=== PATIENT | male | born 1985 | race Caucasian/White ===

== ENCOUNTER 2017-06-23 17:02 | Emergency (ER) | payer MEDICARE, MEDICAID ==
[~2017-06-23] VITALS: Ht 198.1 cm; Wt 110.0 kg
[2017-06-23 17:04] VITALS: Ht 198.1 cm; Wt 110.0 kg
[2017-06-23 18:00] LABS: ADD UMIC YES; UR ASCORBIC ACID NEGATIVE (NEGATIVE); UR BACTERIA FEW /HPF (NONE SEEN); UR BILIRUBIN (Dip) NEGATIVE (NEGATIVE); UR BLOOD (Dip) NEGATIVE (NEGATIVE); UR CLARITY CLOUDY (CLEAR); UR COLOR YELLOW (YELLOW); UR GLUCOSE (Dip) NEGATIVE (NEGATIVE); UR KETONES (Dip) NEGATIVE (NEGATIVE); UR LEUKOCYTE ESTERASE (Dip) 3+ Leu/ul (NEGATIVE); UR MUCUS FEW /HPF (NONE SEEN); UR NITRITE (Dip) POSITIVE (NEGATIVE); UR RBC 10 /HPF (0-5); UR SPECIFIC GRAVITY (Dip) 1.015 (1.003-1.030); UR TOTAL PROTEIN (Dip) NEGATIVE (NEGATIVE); UR UROBILINOGEN (Dip) NEGATIVE (NEGATIVE)
[2017-06-23] MEDS ORDERED: CEPH-443 PO (18:04)
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
== END 2017-06-23 18:30 | disposition home or self-care (01) ==
LOC: E/R 17:02
DX: N30.90 Cystitis, unspecified without hematuria (principal); T83.010A Breakdown (mechanical) of cystostomy catheter, initial encounter; F17.210 Nicotine dependence, cigarettes, uncomplicated; Y73.8 Miscellaneous gastroenterology and urology devices associated with adverse incidents, not elsewhere classified
CPT/HCPCS: 81001; 87086; 99283